=== PATIENT | female | born 1960 | race Caucasian/White ===

== ENCOUNTER → 2023-12-03 10:26 | Outpatient (BNVA) | payer BC, SELFPAY | PROVIDERS: Visit Provider Registered Nurse Neonatal Intensive Care | DX: M19.012 Primary osteoarthritis, left shoulder (principal); M25.512 Pain in left shoulder; S43.082A Other subluxation of left shoulder joint, initial encounter; M25.812 Other specified joint disorders, left shoulder | CPT/HCPCS: 73030 ==